=== PATIENT | female | born 1940 | race American Indian/Alaskan Native ===

== ENCOUNTER 2020-02-20 09:09 | Day surgery (SDC) | payer MEDICARE ==
[2020-02-20] MEDS ORDERED: SODIUM CHLORIDE IRRI 1000 ML 1,000 ML, .VANCOMYCIN VIAL 1,000 MG IR ONE (10:00)
[2020-02-20] MEDS ORDERED: SODIUM CHLORIDE 0.45% 1000 ML 1,000 ML IV SCH (10:00)
[2020-02-20 10:26] LABS: Basophils % (Auto) 0.3 % (0.0-1.8); Eosinophils % (Auto) 0.5 % (0.0-4.3); Hematocrit 35.2 % (30.3-42.9); Hemoglobin 11.6 gm/dl (10.1-14.3); Lymphocytes # (Auto) 1.9 K/mm3 (1.2-5.4); Lymphocytes % (Auto) 21.4 % (13.4-35.0); Mean Corpuscular HGB Conc 33 % (30-34); Mean Corpuscular Volume 87 fl (79-97); Monocytes # (Auto) 0.6 K/mm3 (0.0-0.8); Platelet Count 240 K/mm3 (140-440); Red Blood Count 4.05 M/mm3 (3.65-5.03); Red Cell Distribution Width 16.4 % (13.2-15.2)
[2020-02-20 10:34] LABS: INR 1.13 (0.87-1.13)
[2020-02-20 10:35] LABS: Partial Thromboplastin Time 39.4 Sec. (24.2-36.6)
[2020-02-20] MEDS ORDERED: SODIUM CHLORIDE IRRI 500 ML 500 ML IR ONE (10:43)
[2020-02-20] MEDS ORDERED: LIDOCAINE (1%) 10 MG/1 ML VIAL 20 ML MDV ONE (10:43)
[2020-02-20] MEDS ORDERED: BUPIVACAINE/PF (0.5%) 5 MG/1 ML 30 ML VIAL INFILTRATI ONE (10:43)
[2020-02-20 10:44] LABS: Calcium 9.2 mg/dL (8.4-10.2)
[2020-02-20] MEDS ORDERED: ceFAZolin/Water 2 GM/20 ML 2 GM/20 ML SYRINGE IV ONE (10:44)
[2020-02-20] MEDS: fentaNYL 100 MCG/2 ML INJ ONE ×4 (11:58→13:30)
[2020-02-20] MEDS: MIDAZOLAM 2 MG/2 ML INJ ONE ×4 (11:58→13:30)
[2020-02-20] MEDS ORDERED: HEPARIN/NS 5000 UNIT/500ML 500 ML IR ONE (12:11)
[2020-02-20] MEDS ORDERED: LIDOCAINE (2%) 20 MG/1 ML VIAL 20 ML MDV INFILTRATI ONE ×2 (12:11→12:24)
[2020-02-20] MEDS ORDERED: MIDAZOLAM 2 MG/2 ML INJ ONE (13:31)
[2020-02-20] MEDS ORDERED: fentaNYL 100 MCG/2 ML INJ ONE (13:32)
[2020-02-20] MEDS ORDERED: .VANCOMYCIN VIAL 1,000 MG in SODIUM CHLORIDE IRRI 1000 ML 1,000 ML IRRIGATION ONE (13:38)
[2020-02-20] MEDS ORDERED: NEOMY 3.5 MG/BACIT 400 UNITS/POLY B 5000 UNITS/GM OINT PACKET TP ONE ×2 (14:39→16:00)
[2020-02-20] MEDS ORDERED: amLODIPine 5 MG TAB PO ONE (16:00)
[2020-02-20 17:23] VITALS: BP 168/76
[2020-02-20] MEDS ORDERED: NEOMY 3.5 MG/BACIT 400 UNITS/POLY B 5000 UNITS OINT 15 GM TP SCH (20:00)
== END 2020-02-20 17:29 | disposition home or self-care (01) ==
LOC: CATHLABREC 09:09
PROVIDERS: ATTEND Internal Medicine Cardiovascular Disease
DX: Z45.018 Encounter for adjustment and management of other part of cardiac pacemaker (principal); I44.2 Atrioventricular block, complete; E78.00 Pure hypercholesterolemia, unspecified; I10 Essential (primary) hypertension; G47.30 Sleep apnea, unspecified; E66.9 Obesity, unspecified; M19.90 Unspecified osteoarthritis, unspecified site; E11.9 Type 2 diabetes mellitus without complications; D64.9 Anemia, unspecified; Z83.3 Family history of diabetes mellitus; Z79.899 Other long term (current) drug therapy; Z79.4 Long term (current) use of insulin; Z79.82 Long term (current) use of aspirin; Z68.43 Body mass index [BMI] 50.0-59.9, adult; Z80.8 Family history of malignant neoplasm of other organs or systems; Z82.49 Family history of ischemic heart disease and other diseases of the circulatory system
CPT/HCPCS: 33210; 33228; 36415; 76937; 80048; 85025; 85610; 85730; 93005; 99156; 99157; C1769; C1785; C1894; J0690; J1644; J2250; J3010; J3370; J7030; A6250